=== PATIENT | male | born 1980 | race Caucasian/White ===

== ENCOUNTER 2017-12-24 10:00 | Emergency (ER) | payer BC ==
[2017-12-24 13:19] VITALS: BP 146/86
--- NOTE | 2017-12-24 13:40 | UC ---
Throat Pain/Nasal Junior HPI - HPI Summary HPI Summary: awoke with sore throat that has been getting better through out the day--no fevers, no nausea, body aches or chills - History of Current Complaint Chief Complaint: UCRespiratory Stated Complaint: SORE THROAT, [place] Time Seen by Provider: 12/24/17 13:18 Hx Obtained From: Patient Onset/Duration: Sudden Onset Severity: Mild Pain Intensity: 0 Cough: None Associated Signs & Symptoms: Positive: Negative - Allergies/Home Medications Allergies/Adverse Reactions: Allergies Allergy/AdvReac Type Severity Reaction Status Date / Time No Known Allergies Allergy Verified 12/24/17 13:16 PMH/Surg Hx/FS Hx/Imm Hx Previously Healthy: No Cardiovascular History: Hypertension - Surgical History Surgical History: None - Family History Known Family History: Positive: Unknown - Social History Occupation: Employed Full-time Lives: With Family Alcohol Use: Rare Substance Use Type: None Smoking Status (MU): Never Smoked Tobacco Review of Systems Constitutional: Negative Skin: Negative Eyes: Negative ENT: Sore Throat Respiratory: Negative Cardiovascular: Negative Gastrointestinal: Negative Genitourinary: Negative Motor: Negative Neurovascular: Negative Musculoskeletal: Negative Neurological: Negative Psychological: Negative Is Patient Immunocompromised?: No All Other Systems Reviewed And Are Negative: Yes Physical Exam Triage Information Reviewed: Yes Appearance: Well-Appearing, No Pain Distress, Well-Nourished Vital Signs: Initial Vital Signs Temp 97.9 F 12/24/17 13:16 Pulse 103 12/24/17 13:16 Resp 16 12/24/17 13:16 BP 146/86 12/24/17 13:16 Pulse Ox 98 12/24/17 13:16 Vital Signs Reviewed: Yes Eye Exam: Normal Eyes: Positive: Conjunctiva Clear ENT Exam: Normal ENT: Positive: Normal ENT inspection, Hearing grossly normal, Pharynx normal, TMs normal, Uvula midline. Negative: Nasal congestion, Tonsillar swelling, Tonsillar exudate, Trismus, Muffled voice, Hoarse voice, Dental tenderness, Sinus tenderness Dental Exam: Normal Neck exam: Normal Neck: Positive: Supple, Nontender, No Lymphadenopathy Respiratory Exam: Normal Respiratory: Positive: Chest non-tender, Lungs clear, Normal breath sounds, No respiratory distress, No accessory muscle use Cardiovascular Exam: Normal Cardiovascular: Positive: RRR, No Murmur, Pulses Normal, Brisk Capillary Refill Musculoskeletal Exam: Normal Musculoskeletal: Positive: Strength Intact, ROM Intact, No Edema Neurological Exam: Normal Neurological: Positive: Alert, Muscle Tone Normal Psychological Exam: Normal Skin Exam: Normal Diagnostics - Laboratory Diagnostic Studies Completed/Ordered: RST (-) Throat Pain/Nasal Course/Dx - Course Assessment/Plan: rest increase fluids, tyluenol ibuprofen otc medications for symptom relief follow with pcp this week to recheck bp - Differential Dx/Diagnosis Provider Diagnoses: pharyngitis, hypertension in poor control Discharge - Discharge Plan Condition: Stable Disposition: HOME Patient Education Materials: Pharyngitis (ED), Upper Respiratory Infection (DC) , Hypertension (ED) Referrals: Gali Santana MD [Primary Care Provider] - 1 Week
== END 2017-12-24 13:46 | disposition home or self-care (01) ==
LOC: UCCORT 10:00
DX: J02.9 Acute pharyngitis, unspecified (principal); I10 Essential (primary) hypertension
CPT/HCPCS: 87651; 99211; G0463

== ENCOUNTER 2018-02-23 17:01 | Emergency (ER) | payer BC ==
[2018-02-23 17:57] VITALS: BP 121/88
--- NOTE | 2018-02-23 18:08 | UC ---
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 there is no erythema. no FB, no trauma. no visual disturbance. he states that he is paranoid. co-worker had pink eye w/ that was very red. here with his . she states that he is paranoid and doesnt think he has pink eye. - History of Current Complaint Chief Complaint: UCEye Stated Complaint: POSS. PINK EYE Time Seen by Provider: 02/23/18 17:53 Pain Intensity: 0 - Allergies/Home Medications Allergies/Adverse Reactions: Allergies Allergy/AdvReac Type Severity Reaction Status Date / Time No Known Allergies Allergy Verified 02/23/18 17:55 PMH/Surg Hx/FS Hx/Imm Hx Previously Healthy: Yes Cardiovascular History: Hypertension - Surgical History Surgical History: None - Family History Known Family History: Positive: Hypertension - Social History Alcohol Use: Rare Substance Use Type: None Smoking Status (MU): Never Smoked Tobacco Review of Systems Constitutional: Negative Skin: Negative Eyes: Other - left eye irritation. ENT: Negative Respiratory: Negative Cardiovascular: Negative Gastrointestinal: Negative Genitourinary: Negative Motor: Negative Neurovascular: Negative Musculoskeletal: Negative Neurological: Negative Psychological: Negative Is Patient Immunocompromised?: No All Other Systems Reviewed And Are Negative: Yes Physical Exam Triage Information Reviewed: Yes Appearance: Well-Appearing, No Pain Distress, Well-Nourished Vital Signs: Initial Vital Signs Temp 98.2 F 02/23/18 17:52 Pulse 75 02/23/18 17:52 Resp 16 02/23/18 17:52 BP 121/88 02/23/18 17:52 Pulse Ox 98 02/23/18 17:52 Vital Signs Reviewed: Yes Eye Exam: Normal Eyes: Positive: Conjunctiva Clear, Other: - PERRL, EOMI. no FB.. Negative: Discharge ENT Exam: Normal ENT: Positive: Pharynx normal, TMs normal Dental Exam: Normal Neck exam: Normal Neck: Positive: Supple, Nontender, No Lymphadenopathy Respiratory Exam: Normal Respiratory: Positive: Lungs clear, Normal breath sounds, No respiratory distress, No accessory muscle use Cardiovascular Exam: Normal Cardiovascular: Positive: RRR, No Murmur, Pulses Normal Abdominal Exam: Normal Psychological Exam: Normal Eye Complaint Course/Dx - Course Course Of Treatment: left eye irritation. no signs or sx of FB, trauma, visual disturbance or d.c. - Differential Dx/Diagnosis Differential Diagnosis/HQI/PQRI: Foreign Body, Other Provider Diagnoses: left eye irritation Discharge - Sign-Out/Discharge Documenting (check all that apply): Discharge - Discharge Plan Condition: Stable Disposition: HOME Patient Education Materials: Conjunctivitis (ED) Referrals: Gali Santana MD [Primary Care Provider] - 1 Week Additional Instructions: I do not think that you have conjunctivitis but some mild irritation. I recommend that you get OTC refresh brand PM eye drops. these are very viscous and soothing./ YOu can certainly follow up here or with your PCP if symptoms worsen or persist or have any eye pain or visual disturbance (go to ER with latter 2 symptoms). - Billing Disposition and Condition Condition: STABLE Disposition: HOME
== END 2018-02-23 18:15 | disposition home or self-care (01) ==
LOC: UCCORT 17:01
DX: H57.8 Other specified disorders of eye and adnexa (principal); I10 Essential (primary) hypertension
CPT/HCPCS: 99211; G0463

== ENCOUNTER 2018-08-29 07:19 | Emergency (ER) | payer BC ==
[2018-08-29 07:30] VITALS: BP 133/90
[2018-08-29] MEDS ORDERED: DOXYcycline CAP(*) 100 MG PO ONE (07:41)
--- NOTE | 2018-08-29 07:42 | UC ---
Bite Injury/Animal HPI - HPI Summary HPI Summary: 48-year-old male comes in to clinic today after removing a tick from his right side of his abdomen this morning. Patient's been in the [place] over the last week he is not sure how long the tick's been in there. He removed it with a tick removal device and he believes he has the head of the tick. Upon evaluation of the tick that the patient brought in it does appear that the head is on the tick. Patient's been feeling well fevers no chills. - History of Current Complaint Chief Complaint: UCSkin Stated Complaint: TICK Time Seen by Provider: 08/29/18 07:32 Pain Intensity: 0 - Allergies/Home Medications Allergies/Adverse Reactions: Allergies Allergy/AdvReac Type Severity Reaction Status Date / Time No Known Allergies Allergy Verified 08/29/18 07:26 PMH/Surg Hx/FS Hx/Imm Hx Cardiovascular History: Hypertension - Surgical History Surgical History: None - Family History Known Family History: Positive: Unknown, Hypertension Negative: Diabetes - Social History Alcohol Use: Rare Substance Use Type: None Smoking Status (MU): Never Smoked Tobacco Review of Systems Constitutional: Negative Skin: Other - see hpi Eyes: Negative ENT: Negative Respiratory: Negative Cardiovascular: Negative Gastrointestinal: Negative Motor: Negative Neurovascular: Negative Musculoskeletal: Negative Neurological: Negative Psychological: Negative Is Patient Immunocompromised?: No All Other Systems Reviewed And Are Negative: Yes Physical Exam Triage Information Reviewed: Yes Appearance: Well-Appearing, No Pain Distress, Well-Nourished Vital Signs: Initial Vital Signs Temp 98.9 F 08/29/18 07:26 Pulse 90 08/29/18 07:26 Resp 15 08/29/18 07:26 BP 133/90 08/29/18 07:26 Pulse Ox 99 08/29/18 07:26 Vital Signs Reviewed: Yes Eye Exam: Normal Eyes: Positive: Conjunctiva Clear Neck exam: Normal Neck: Positive: Supple Respiratory: Positive: No accessory muscle use Musculoskeletal Exam: Normal Musculoskeletal: Positive: Strength Intact, ROM Intact Neurological Exam: Normal Neurological: Positive: Alert, Muscle Tone Normal Psychological Exam: Normal Psychological: Positive: Age Appropriate Behavior Skin: Positive: Other - Right lower lateral abdomen there is this area of erythema the patient identifies as the site where the tick was embedded. I do not see any foreign body in the site there is no streaking there is no tenderness or drainage. Bite Injury Course/Dx - Differential Dx/Diagnosis Provider Diagnoses: tick bite right abdomen Discharge - Sign-Out/Discharge Documenting (check all that apply): Patient Departure All imaging exams completed and their final reports reviewed: No Studies - Discharge Plan Condition: Stable Disposition: HOME Patient Education Materials: Tick Bite (ED) Referrals: Gali Santana MD [Primary Care Provider] - Additional Instructions: FOLLOW UP WITH YOUR DOCTOR IF NOT COMPLETELY IMPROVED. GET RECHECKED FOR ANY WORSENING OF YOUR CONDITION OR QUESTIONS OR CONCERNS. - Billing Disposition and Condition Condition: STABLE Disposition: Home
== END 2018-08-29 07:48 | disposition home or self-care (01) ==
LOC: UCCORT 07:19
DX: S30.861A Insect bite (nonvenomous) of abdominal wall, initial encounter (principal); I10 Essential (primary) hypertension; W57.XXXA Bitten or stung by nonvenomous insect and other nonvenomous arthropods, initial encounter; Y92.9 Unspecified place or not applicable
CPT/HCPCS: 99212; A9270-GY; G0463